=== PATIENT | female | born 1960 | race Caucasian/White ===

== ENCOUNTER 2023-01-20 05:52 | Observation (INO) ==
--- NOTE | 2022-12-22 12:36 | PAT Medication Instructions ---
Medication Instructions Date of Service December 22, 2022 Home Medications albuterol sulfate 90 mcg/actuation aerosol inhaler 1 inh inhalation QID PRN sob amlodipine 5 mg tablet 5 mg PO QAM aspirin 325 mg tablet 325 mg PO QAM bupropion HCl 300 mg 24 hr tablet, extended release 300 mg PO QAM docusate sodium 50 mg capsule (Stool Softener) 100 mg PO HS fluticasone fur. 200 mcg-umeclid 62.5 mcg-vilant 25 mcg inhalat.powder (Trelegy Ellipta) 1 inh inhalation QAM gabapentin 400 mg capsule 800 mg PO BID glimepiride 2 mg tablet 2 mg PO QDL hydralazine 50 mg tablet 100 mg PO BID hydrocodone 7.5 mg-acetaminophen 325 mg tablet 1 tab PO Q6H PRN Pain ipratropium 0.5 mg-albuterol 3 mg (2.5 mg base)/3 mL nebulization soln 3 ml inhalation QID PRN sob losartan 100 mg tablet 100 mg PO QAM metformin 500 mg tablet 1,000 mg PO BID pantoprazole 40 mg tablet,delayed release 40 mg PO QAM ASK your prescriber and surgeon aspirin 325 mg tablet 325 mg PO QAM DO NOT take the morning of surgery glimepiride 2 mg tablet 2 mg PO QDL losartan 100 mg tablet 100 mg PO QAM metformin 500 mg tablet 1,000 mg PO BID Take morning of surgery With a small sip of water, OTHERWISE NOTHING TO EAT OR DRINK AFTER MIDNIGHT: albuterol sulfate 90 mcg/actuation aerosol inhaler 1 inh inhalation QID PRN sob (use if needed; please bring rescue inhaler with you to hospital day of surgery if possible) amlodipine 5 mg tablet 5 mg PO QAM bupropion HCl 300 mg 24 hr tablet, extended release 300 mg PO QAM fluticasone fur. 200 mcg-umeclid 62.5 mcg-vilant 25 mcg inhalat.powder (Trelegy Ellipta) 1 inh inhalation QAM gabapentin 400 mg capsule 800 mg PO BID hydralazine 50 mg tablet 100 mg PO BID hydrocodone 7.5 mg-acetaminophen 325 mg tablet 1 tab PO Q6H PRN Pain (if needed) ipratropium 0.5 mg-albuterol 3 mg (2.5 mg base)/3 mL nebulization soln 3 ml inhalation QID PRN sob (if needed) pantoprazole 40 mg tablet,delayed release 40 mg PO QAM Take evening before surgery albuterol sulfate 90 mcg/actuation aerosol inhaler 1 inh inhalation QID PRN sob (if needed) docusate sodium 50 mg capsule (Stool Softener) 100 mg PO HS gabapentin 400 mg capsule 800 mg PO BID hydralazine 50 mg tablet 100 mg PO BID hydrocodone 7.5 mg-acetaminophen 325 mg tablet 1 tab PO Q6H PRN Pain (if needed) ipratropium 0.5 mg-albuterol 3 mg (2.5 mg base)/3 mL nebulization soln 3 ml inhalation QID PRN sob (if needed) metformin 500 mg tablet 1,000 mg PO BID Other Notes If you have any questions please call us at [phone] or [phone] or [phone] or [phone]
--- NOTE | 2022-12-29 14:08 | Anesthesiology Consultation ---
Date of Service December 29, 2022 Assessment & Plan (1) Encounter for pre-operative examination: - Check BSG AM DOS - Infectious disease screening: Per assessment on 12/29/22: No known infectious disease contacts or current infectious disease symptoms. No noted Covid positive test result in past 90 days. - Neurosurgery visit (10/28/22): "Continue ASA 325mg daily.. For better BP control, continue Hydralazine.. Losartan.. and stop the Carvedilol and start Amlodipine.. Check BP daily for one week and call in with report. If no improvement and if still no improvement.. will refer to cardiology if ok with PCP.. 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 RTC in 1 year or sooner if issues arise" > BP 121/64 at PAT visit 12/29/22. - Preop EKG: Performed 12/29/22, notes ST/TWA, consider lateral ischemia. Preop cardiology evaluation needed- patient aware. [place] preop [place] [place] Chart Review Chart Review: Patient seen in Pre Admission Testing Teaching & Discussion Pre-Anesthesia Teaching/Discussion Notes: Instructed NPO after midnight before surgery,except medications with 15 cc of water. Medication instructions provided according to the [facility] guidelines. History Surgery Operation Date: 01/20/23 07:15 Proposed Procedures p L2-L3 Decompression - Johann Salas MD Height/Weight Height: 5 ft 1 in Weight: 87.9 kg Allergies Allergy/AdvReac Type Severity Reaction Status Date / Time No Known Allergies Allergy Verified 12/17/22 12:43 Medications Home Medications Medication Instructions Recorded Confirmed Last Taken albuterol sulfate 90 mcg/actuation 1 inh inhalation QID PRN sob 12/17/22 12/17/22 Unknown aerosol inhaler amlodipine 5 mg tablet 5 mg PO QAM 12/17/22 12/17/22 Unknown aspirin 325 mg tablet 325 mg PO QAM 12/17/22 12/17/22 Unknown bupropion HCl 300 mg 24 hr tablet, 300 mg PO QAM 12/17/22 12/17/22 Unknown extended release docusate sodium 50 mg capsule 100 mg PO HS 12/17/22 12/17/22 Unknown (Stool Softener) fluticasone fur. 200 mcg-umeclid 1 inh inhalation QAM 12/17/22 12/17/22 Unknown 62.5 mcg-vilant 25 mcg inhalat.powder (Trelegy Ellipta) gabapentin 400 mg capsule 800 mg PO BID 12/17/22 12/17/22 Unknown glimepiride 2 mg tablet 2 mg PO QDL 12/17/22 12/17/22 Unknown hydralazine 50 mg tablet 100 mg PO BID 12/17/22 12/17/22 Unknown hydrocodone 7.5 mg-acetaminophen 1 tab PO Q6H PRN Pain 12/17/22 12/17/22 Unknown 325 mg tablet ipratropium 0.5 mg-albuterol 3 mg 3 ml inhalation QID PRN sob 12/17/22 12/17/22 Unknown (2.5 mg base)/3 mL nebulization soln losartan 100 mg tablet 100 mg PO QAM 12/17/22 12/17/22 Unknown metformin 500 mg tablet 1,000 mg PO BID 12/17/22 12/17/22 Unknown pantoprazole 40 mg tablet,delayed 40 mg PO QAM 12/17/22 12/17/22 Unknown release Past Medical History Medical History (Updated 12/30/22 @ 20:44 by Renetta Hussein) Carotid artery disease LICA angioplasty + stent (01/2020) DM type 2 (diabetes mellitus, type 2) Osteoarthritis Spinal stenosis Depression History of CVA (cerebrovascular accident) 01/2020 > LICA angioplasty + stent (01/2020) No residual issues HLD (hyperlipidemia) HTN (hypertension) Sleep apnea No device (reports "could not afford") COPD (chronic obstructive pulmonary disease) Asthma Exercise / Class Metabolic Activity III < 4 Walking/Shop/Light housework (one FS (no CP, + SOB)) Past Family History Family History Other No family history of adverse response to anesthesia Past Surgical History Surgical History (Updated 12/30/22 @ 20:44 by Renetta Hussein) History of surgery LICA angioplasty + stent (01/2020) History of carpal tunnel surgery of left wrist History of back surgery x2 History of total abdominal hysterectomy and bilateral salpingo-oophorectomy History of colonoscopy Past Anesthesia History No Hx of Anesthesia Complications and No Family Hx of Anesthesia Complications History of PONV No Hx of PONV and No Hx of Motion Sickness Social History Smoking Status: Current every day smoker Smoking cigarettes per day: 1 PPD (trying to quit) Do You Dip or Chew Tobacco: No Hx Alcohol Use: No Hx Substance Use: No substance use type: does not use Review of Systems Patient denies chest pain, shortness of breath, fever, chills, cough, wheezing, palpitations. Physical Exam Vital Signs VITALS BP 121/64 P 98 TEMP 98.6 SP02 94%RA RESP 18 PHYSICAL Mildly decreased cervical extension range of motion. Full TMJ range of motion. TMD 3 finger breaths Mallampati Score 3 Dentition: upper/lower full dentures Lungs: clear throughout to auscultation Cardiac: regular rate and rhythm, no murmurs noted Spine: normal Carotid arteries: negative bruit Extremities: no LE edema Lab Results Anesthesia Preop Results Results Anesthesia Widget: WBC 11.05 K/ul (4.8-10.8) H 12/29/22 Hgb 13.8 g/dl (12.0-16.0) 12/29/22 Hct 43.7 % (37.0-47.0) 12/29/22 Plt 358 K/uL (130-400) 12/29/22 Na 141 mmol/L (136-145) 12/29/22 K 3.7 mmol/L (3.5-5.1) 12/29/22 Cl 104 mmol/L (98-107) 12/29/22 CO2 30 mmol/L (21-32) 12/29/22 BUN 15 mg/dl (6-23) 12/29/22 Creat 0.70 mg/dl (0.6-1.2) 12/29/22 Glucose Level 128 mg/dl (70-99(Fasting)) H 12/29/22 PT 10.0 Seconds (9.0-12.0) 12/29/22 PTT 28.5 Seconds (21.0-31.0) 12/29/22 INR 0.9 (0.9-1.1) 12/29/22 HA1c 6.5 % (4.5-5.6) H 12/29/22 Blood Type O Positive 12/29/22 Antibody Screen NEGATIVE 12/29/22 Testing Electrocardiogram Date: 12/29/[address]/TWA, consider lateral ischemia. Prolonged QT. Chest X-Ray Date: 12/29/22 Findings: + NAD Other Testing Carotid doppler Date: 10/28/22 <50% VALERIE stenosis. LICA and ICA stent are widely patent. R/L vertebral artery antegrade.
[~2023-01-20 05:52] MED LIST: LACTATED RINGER'S 1,000 ML IV SCH; ceFAZolin 2,000 MG/15 ML IV PUSH IV ONE
[2023-01-20] MEDS ORDERED: ATROPINE SULFATE 0.1 MG/ML 10ML SYR IV PRN (06:51)
[2023-01-20] MEDS ORDERED: ePHEDrine sulfate 50 MG/ML AMP IV PRN (06:51)
[2023-01-20] MEDS ORDERED: fentaNYL citrate PF 100 MCG/2 ML VIAL IV PRN (06:51)
[2023-01-20] MEDS ORDERED: ONDANSETRON INJ 2 MG/ML 2 ML VIAL IV PRN ×2 (06:51→11:47)
[2023-01-20] MEDS ORDERED: ALBUT/IPRATROP 3MG/0.5MG NEB 3 ML VIAL NEB STA ×2 (06:57→13:39)
[2023-01-20] MEDS ORDERED: fentaNYL citrate PF 100 MCG/2 ML VIAL ONE ×2 (07:03→08:18)
[2023-01-20] MEDS ORDERED: LIDOCAINE 2% 2 ML VIAL/AMP(20MG/ML) INFIL ONE (07:03)
[2023-01-20] MEDS ORDERED: MIDAZOLAM HCL 1 MG/ML 2ML VIAL ONE (07:03)
[2023-01-20] MEDS ORDERED: ROCURONIUM BROMIDE 10 MG/ML 5 ML VIAL IV ONE ×3 (07:03→10:49)
[2023-01-20] MEDS ORDERED: PROPOFOL IV EMULSION 10 MG/ML 20 ML VIAL IV ONE (07:03)
[2023-01-20] MEDS ORDERED: ONDANSETRON INJ 2 MG/ML 2 ML VIAL ONE (07:03)
[2023-01-20] MEDS ORDERED: DEXAMETHASONE SOD INJ 4 MG/ML VIAL ONE (07:03)
--- NOTE | 2023-01-20 07:09 | History & Physical Bridge Note ---
Date of Service January 20, 2023 History & Physical Bridge Note I have examined the patient, reviewed the History & Physical and in the interval since the performance of the History & Physical I have noted the following changes of clinical significance: no changes noted
[2023-01-20] MEDS ORDERED: ALBUTEROL HFA 8 GM INHALER INH ONE (07:10)
[2023-01-20] MEDS ORDERED: BUPIVACAINE 0.5 % 5 MG/1 ML MPF 30ML VIAL ONE (07:11)
[2023-01-20] MEDS ORDERED: THROMBIN 5000 UNITS KIT ONE (07:11)
[2023-01-20] MEDS ORDERED: VANCOMYCIN HCL 1000MG/20ML VIAL ONE (07:11)
[2023-01-20] MEDS ORDERED: GELATIN SPONGE SZ 100 ONE (07:11)
[2023-01-20] MEDS ORDERED: DexMEDEtomidine HCL IV 100 MCG/ML VIAL IV ONE (07:14)
[2023-01-20] MEDS ORDERED: KETAMINE HCL 10MG/ML SYR ONE (07:14)
[2023-01-20] MEDS ORDERED: PHENYLEPHRINE HCL 10 MG/ML VIAL ONE (09:07)
[2023-01-20] MEDS ORDERED: FLOSEAL HEMOSTATIC MATRIX 10ML TOP ONE (09:38)
[2023-01-20] MEDS ORDERED: HYDROmorphone INJ 2 MG/ML SYR/VIAL ONE (11:05)
[2023-01-20] MEDS ORDERED: KETOROLAC 30 MG/ML VIAL ONE (11:11)
[2023-01-20] MEDS ORDERED: ceFAZolin 330 MG/ML 1 GM VIAL ONE (11:13)
[2023-01-20] MEDS ORDERED: NEOSTIGMINE METHYLSULFATE 1 MG/ML 10ML VIAL ONE (11:17)
[2023-01-20] MEDS ORDERED: GLYCOPYRROLATE 0.2 MG/ML VIAL ONE (11:17)
[2023-01-20] MEDS ORDERED: SUGAMMADEX SODIUM 200 MG/2 ML VIAL IV ONE (11:44)
--- NOTE | 2023-01-20 11:45 | Fluoroscopy Report ---
INTRAOPERATIVE RADIOGRAPHS CLINICAL HISTORY: Lumbar spinal fusion. Fluoro time: 22 seconds Ka,r: 16.58 mGy FINDINGS: 3 spot fluoroscopic views of the lumbar spine are presented. There has been discectomy at L 3-L4 and L4-L5 with laminectomy and posterior fusion at L3-S1. Interpedicular screws are present at a ll levels. The orthopedic hardware appears intact. IMPRESSION: Intraoperative images from lumbar spinal fusion surgery as above. Electronically signed by: Daniel Campbell M.D. 01/20/2023 11:43 AM
[2023-01-20] MEDS ORDERED: LORazepam 0.5 MG in SYRINGE 0.25 ML IV PRN (11:47)
[2023-01-20] MEDS ORDERED: MAGNESIUM HYDROXIDE SUSP 30 ML UDC PO PRN (11:47)
[2023-01-20] MEDS ORDERED: METOCLOPRAMIDE HCL INJ 5 MG/ML 2 ML VIAL IV PRN (11:47)
[2023-01-20] MEDS ORDERED: ACETAMINOPHEN 1,000 MG/100 ML VIAL IV PRN (11:47)
[2023-01-20] MEDS ORDERED: NALOXONE HCL 0.4 MG/1 ML VIAL/CARP IV PRN (11:47)
[2023-01-20] MEDS ORDERED: DO NOT ADMINISTER PNEUMOCOCCAL VACCINE PRN (11:47)
[2023-01-20] MEDS ORDERED: diphenhydrAMINE Capsule 25 MG CAP PO PRN (11:47)
[2023-01-20] MEDS ORDERED: SOD PHOSPHATE/SOD BIPHOSPHATE ENEMA 132 ML BTL PR PRN (11:47)
[2023-01-20] MEDS ORDERED: ACETAMINOPHEN 500 MG TAB PO PRN (11:47)
[2023-01-20] MEDS ORDERED: bisacodyL 10 MG SUPP PR PRN (11:47)
[2023-01-20] MEDS ORDERED: ALUMINUM/MAGNESIUM SUSP 30 ML UDC PO PRN (11:47)
[2023-01-20] MEDS ORDERED: HYDROmorphone INJ 0.5 MG/0.5 ML SYR IV PRN (11:47)
[2023-01-20] MEDS ORDERED: oxyCODONE/ACETAMINOPHEN 5mg/325mg TAB PO PRN (11:47)
[2023-01-20] MEDS ORDERED: hydrOXYzine HCl 25 MG TAB PO PRN (11:47)
[2023-01-20] MEDS ORDERED: LORazepam 0.5 MG TAB PO PRN (11:47)
[2023-01-20] MEDS ORDERED: FAMOTIDINE 20 MG TAB PO PRN (11:47)
[2023-01-20] MEDS ORDERED: ONDANSETRON 4 MG OD TAB PO PRN (11:47)
[2023-01-20] MEDS ORDERED: DO NOT ADMINISTER FLU VACCINE PRN (11:47)
[2023-01-20] MEDS ORDERED: PROMETHAZINE HCL 12.5 MG in SODIUM CHLORIDE 0.9% 50 ML IV PRN (11:47)
--- NOTE | 2023-01-20 11:47 | Post Operative Brief Note ---
PG Immediate Post Op with CF Date of Surgery January 20, 2023 Pre & Post Diagnosis Operation Date: 01/20/23 07:15 Pre-Op Diagnosis: Lumbar Stenosis Without Neurogenic Claudication Post-Op Diagnosis: Lumbar Stenosis Without Neurogenic Claudication I identified the patient and participated in the time-out.: Yes Procedure Operation Date: 01/20/23 07:15 Actual Procedures p L2-L3 Decompression(Not Applicable) - Johann Salas MD Surgeon Johann Salas MD Engineering Research Manager none Estimated Blood Loss 50 Findings Consistent with Post-Op Diagnosis Specimens Specimen Description: None per surgeon
[2023-01-20] MEDS ORDERED: ALBUT/IPRATROP 3MG/0.5MG NEB 3 ML VIAL ONE (13:38)
--- NOTE | 2023-01-20 14:28 | Hospitalist Consultation ---
Date of Consultation January 20, 2023 Assessment & Plan (1) Postoperative hypoxia: I suspect she will just take a long time to recover from anesthesia - multifactorial due to COPD, continued smoking, untreated ELI, hypoxia on exertion at baseline She has no respiratory distress, wheezing or concern for etiology prior to her operation Given no specific acute pathology other than post operative hypoxia in a patient with chronic reasons for hypoxia she appears stable for med/surg If she is getting more confused she should get an ABG to assess for CO2 retention however will defer currently as she is wide awake with no respiratory distress O2 aim should be 88-92%; higher O2 sats risks CO2 retention Will remain on continuous pulse ox Continue incentive spirometer q1h Duonebs qid as some chest tightness but no wheezing She has untreated obstructive sleep apnea and should wear CPAP when napping or sleeping (2) Lumbar stenosis without neurogenic claudication: s/p Lumbar decompression Pain/VTE/bowel management per primary orthopedic team (3) DM type 2 (diabetes mellitus, type 2): Hemoglobin A1C 6.5 in December on pre-op testing, no need to repeat Will consult pharmacy for glycemic control in setting of steroid and recent surgery use Hold home diabetes regimen - but given controlled A1C no changes recommended on discharge (4) HTN (hypertension): Hold hydralazine until serial BP known Hold amlodipine and losartan if sBP < 120 (updated orders) (5) Sleep apnea: CPAP HS and while sleeping (6) COPD (chronic obstructive pulmonary disease): No acute exacerbation suspected Continue routine inhalers or hospital formulary equivalent (7) Dyslipidemia: Continue atorvastatin Plan Thank you for the consult we will continue to medically manage while admitted. History of Present Illness Reason for Consultation: medical management Attending Physician: Johann Salas MD History of Present Illness Anaya Cervantes is a 62 year old female POD#0 L2-3 lumbar spinal decompression performed by Dr Salas earlier today. Estimated blood loss 50ml. No complications listed. Medicine contacted and asked to see patient in PACU due to hypoxia with patient requiring 8LPM O2 via oxymask. When seen in the PACU she had already been given a duoneb. She reports no respiratory distress, chest pain or shortness of breath. She denies any pre surgery illness such as fever, chills, sinus pain, cough, nasal congestion. She reports a significant history of CPAP but does not wear a machine at home as she cannot afford it. Previously been told she needs oxygen for her COPD but also cannot afford it. She does take her inhalers and took her usual maintenance inhaler this morning. Allergies Allergy/AdvReac Type Severity Reaction Status Date / Time No Known Allergies Allergy Verified 01/20/23 06:06 Home Medications Medication Instructions Recorded Confirmed Type albuterol sulfate 90 mcg/actuation 1 inh inhalation QID PRN sob 12/17/22 01/20/23 History aerosol inhaler amlodipine 5 mg tablet 5 mg PO QAM 12/17/22 01/20/23 History aspirin 325 mg tablet 325 mg PO QAM 12/17/22 01/20/23 History bupropion HCl 300 mg 24 hr tablet, 300 mg PO QAM 12/17/22 01/20/23 History extended release docusate sodium 50 mg capsule 100 mg PO HS 12/17/22 01/20/23 History (Stool Softener) fluticasone fur. 200 mcg-umeclid 1 inh inhalation QAM 12/17/22 01/20/23 History 62.5 mcg-vilant 25 mcg inhalat.powder (Trelegy Ellipta) gabapentin 400 mg capsule 800 mg PO BID 12/17/22 01/20/23 History glimepiride 2 mg tablet 2 mg PO QDL 12/17/22 01/20/23 History hydralazine 50 mg tablet 100 mg PO BID 12/17/22 01/20/23 History hydrocodone 7.5 mg-acetaminophen 1 tab PO Q6H PRN Pain 12/17/22 01/20/23 History 325 mg tablet ipratropium 0.5 mg-albuterol 3 mg 3 ml inhalation QID PRN sob 12/17/22 01/20/23 History (2.5 mg base)/3 mL nebulization soln losartan 100 mg tablet 100 mg PO QAM 12/17/22 01/20/23 History metformin 500 mg tablet 1,000 mg PO BID 12/17/22 01/20/23 History pantoprazole 40 mg tablet,delayed 40 mg PO QAM 12/17/22 01/20/23 History release atorvastatin 80 mg tablet 80 mg PO DAILY 01/16/23 01/20/23 History venlafaxine 75 mg tablet 75 mg PO TID 01/16/23 01/20/23 History Patient History Medical History (Updated 01/21/23 @ 07:08 by Brad Balbuena MD) Carotid artery disease LICA angioplasty + stent (01/2020) DM type 2 (diabetes mellitus, type 2) Osteoarthritis Spinal stenosis Depression History of CVA (cerebrovascular accident) 01/2020 > LICA angioplasty + stent (01/2020) No residual issues HLD (hyperlipidemia) HTN (hypertension) Sleep apnea No device (reports "could not afford") COPD (chronic obstructive pulmonary disease) Asthma Surgical History History of surgery LICA angioplasty + stent (01/2020) History of carpal tunnel surgery of left wrist History of back surgery x2 History of total abdominal hysterectomy and bilateral salpingo-oophorectomy History of colonoscopy Family History Other No family history of adverse response to anesthesia Social History Smoking Status: Current every day smoker Tobacco Type: Cigarettes Cigarettes Per Day: 1 PPD (trying to quit); Second Hand Exposure: No; Do You Dip or Chew Tobacco: No; Tobacco Cessation Education Requested by Patient: No Hx Alcohol Use: No Hx Substance Use: No Preferred Language: Afghan Communication Ability: Effective 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 Beliefs That Will Affect Care: None Current Living Situation: Spouse Feels Safe at Home: Yes Safety Concerns: Feels Safe At This Time Assistive Devices: Cane, Denture - Upper, Denture - Lower and Walker Review of Systems Review of Systems: All systems reviewed & are unremarkable except as noted in HPI & below Physical Exam Constitutional: WD/WN, vitals as above Eyes: + anicteric sclerae; normal pupil size ENMT: external ear and nose normal, oropharynx normal Respiratory: normal respiratory effort; no respiratory distress Auscultation: + crackles (bibasal); breath sounds present, no diminished lung sounds, no rales, no rhonchi and no wheezes Cardiovascular: RRR, no murmur, no edema Gastrointestinal (Abdomen): normal bowel sounds, soft, nontender, no hepatosplenomegaly Skin: no rashes, warm and dry Neurologic: moves all extremities and awake; not confused Psychiatric: A+Ox3, euthymic affect Results & Data Results & Data Vital Signs (Past 12 Hours) Vital Signs Temp Pulse Pulse Resp BP Pulse Ox O2 Del Method 01/20/23 14:15 101 H 19 132/63 91 Oxymask 01/20/23 14:05 36.8 C 98 H 15 122/58 L 92 Oxymask 01/20/23 13:55 94 H 13 113/53 L 87 L Oxymask 01/20/23 13:45 94 H 13 102/58 L 94 Nebulizer 01/20/23 13:35 98 H 13 125/72 86 L Oxymask 01/20/23 13:25 104 H 12 147/59 H 91 Oxymask 01/20/23 13:15 106 H 11 L 118/65 90 Oxymask 01/20/23 13:05 106 H 12 109/55 L 90 Oxymask 01/20/23 12:55 105 H 14 134/60 90 Oxymask 01/20/23 12:45 106 H 14 148/62 H 92 Oxymask 01/20/23 12:35 104 H 16 136/74 94 Oxymask 01/20/23 12:25 111 H 12 166/70 H 91 Oxymask 01/20/23 12:15 115 H 18 166/70 H 89 L Oxymask 01/20/23 12:09 36.3 C L 114 H 12 162/63 H 90 Oxymask 01/20/23 07:02 93 H 16 90 Room Air 01/20/23 06:29 36.7 C 101 H 22 148/68 H 92 Room Air 01/20/23 06:11 Room Air O2 Flow Rate 01/20/23 14:15 8 01/20/23 14:05 8 01/20/23 13:55 4 01/20/23 13:45 7 01/20/23 13:35 6 01/20/23 13:25 6 01/20/23 13:15 6 01/20/23 13:05 6 01/20/23 12:55 6 01/20/23 12:45 10 01/20/23 12:35 10 01/20/23 12:25 15 01/20/23 12:15 15 01/20/23 12:09 15 01/20/23 07:02 01/20/23 06:29 12/05/23 06:11 Diagnostic Findings XR chest 1V portable CLINICAL HISTORY: hypoxia TECHNIQUE: Single frontal radiograph of the chest was obtained. Comparison: Comparison is made to chest radiograph 12/29/2022 FINDINGS: No lines and tubes are seen. Cardiomegaly is noted. The aortic arch is calcified. Atelectasis is noted. No evidence of pleural effusion or pneumothorax. IMPRESSION: No acute chest disease. Cardiomegaly is noted. PG Care Time/CCT Total # of Minutes Spent Total Time Spent with Patient: Total time spent is greater than 50% in coordination of care (as documented) at patient's floor/unit and/or counseling patient: Coding Level of Care Code 50035 IN/OBS CONSULT LVL 4,60M Diagnoses Postoperative hypoxia R09.02; Z98.890 Lumbar stenosis without neurogenic claudication M48.061 Type 2 diabetes mellitus without complication, without long-term current use of insulin E11.9 Diabetes mellitus complication status: without complication Diabetes mellitus jail insulin use: without jail use Primary hypertension I10 Hypertension type: primary hypertension Sleep apnea G47.30 COPD (chronic obstructive pulmonary disease) J44.9 Dyslipidemia E78.5 (3) DM type 2 (diabetes mellitus, type 2) Diabetes mellitus complication status: without complication Diabetes mellitus buttermaker insulin use: without buttermaker use Qualified Code(s): E11.9 - Type 2 diabetes mellitus without complications (4) HTN (hypertension) Hypertension type: primary hypertension Qualified Code(s): I10 - Essential (primary) hypertension
[2023-01-20] MEDS ORDERED: PHARMACY GLYCEMIC MGMT CONSULT PRN (14:34)
--- NOTE | 2023-01-20 14:41 | XRay Report ---
XR chest 1V portable CLINICAL HISTORY: hypoxia TECHNIQUE: Single frontal radiograph of the chest was obtained. Comparison: Comparison is made to chest radiograph 12/29/2022 FINDINGS: No lines and tubes are seen. Cardiomegaly is noted. The aortic arch is calcified. Atelectasis is note d. No evidence of pleural effusion or pneumothorax. IMPRESSION: No acute chest disease. Cardiomegaly is noted. ACT 112: Negative or not required by law. Electronically signed by: Rayray Dominguez M.D. 01/20/2023 2:41 PM
--- NOTE | 2023-01-20 14:48 | Anesthesiology Progress Note ---
Date of Service January 20, 2023 Anesthesia Post Procedure Vital Signs Vital Signs: Temp Pulse Pulse Resp BP Pulse Ox O2 Del Method 01/20/23 14:35 96 H 17 111/66 90 Oxymask 01/20/23 14:25 97 H 12 112/67 91 Oxymask 01/20/23 14:15 101 H 19 132/63 91 Oxymask 01/20/23 14:05 98.2 F 98 H 15 122/58 L 92 Oxymask 01/20/23 13:55 94 H 13 113/53 L 87 L Oxymask 01/20/23 13:45 94 H 13 102/58 L 94 Nebulizer 01/20/23 13:35 98 H 13 125/72 86 L Oxymask 01/20/23 13:25 104 H 12 147/59 H 91 Oxymask 01/20/23 13:15 106 H 11 L 118/65 90 Oxymask 01/20/23 13:05 106 H 12 109/55 L 90 Oxymask 01/20/23 12:55 105 H 14 134/60 90 Oxymask 01/20/23 12:45 106 H 14 148/62 H 92 Oxymask 01/20/23 12:35 104 H 16 136/74 94 Oxymask 01/20/23 12:25 111 H 12 166/70 H 91 Oxymask 01/20/23 12:15 115 H 18 166/70 H 89 L Oxymask 01/20/23 12:09 97.3 F L 114 H 12 162/63 H 90 Oxymask 01/20/23 07:02 93 H 16 90 Room Air 01/20/23 06:29 98.1 F 101 H 22 148/68 H 92 Room Air 01/20/23 06:11 Room Air O2 Flow Rate 01/20/23 14:35 6 01/20/23 14:25 6 01/20/23 14:15 8 01/20/23 14:05 8 01/20/23 13:55 4 01/20/23 13:45 7 01/20/23 13:35 6 01/20/23 13:25 6 01/20/23 13:15 6 01/20/23 13:05 6 01/20/23 12:55 6 01/20/23 12:45 10 01/20/23 12:35 10 01/20/23 12:25 15 01/20/23 12:15 15 01/20/23 12:09 15 01/20/23 07:02 01/20/23 06:29 01/20/23 06:11 Transfer of Care Handoff Completed per policy Notes Mental Status: alert / awake / arousable and participated in evaluation Patient Amnestic to Procedure: Yes Nausea / Vomiting: adequately controlled Pain: adequately controlled Airway Patency, RR, SpO2: see Notes below BP & HR: stable & adequate Hydration State: stable & adequate Anesthetic Complications: no major complications apparent and Pt Satisfied with anesthetic care Notes: patient seen after duoneb with diminished breath sounds, improved wheezing compared to preop, satting high 80's on 4-6L oxymask, hospitalist consulted, will require continuous pulse ox monitoring overnight, OK to discharge to floor
[2023-01-20] MEDS: LACTATED RINGER'S 1,000 ML IV SCH (15:30)
[2023-01-20] MEDS ORDERED: ALBUTEROL HFA 8 GM INHALER INH PRN (15:31)
[2023-01-20] MEDS ORDERED: ALBUT/IPRATROP 3MG/0.5MG NEB 3 ML VIAL INH PRN (15:31)
[2023-01-20] MEDS: ALBUT/IPRATROP 3MG/0.5MG NEB 3 ML VIAL NEB SCH ×2 (15:52→19:58)
--- NOTE | 2023-01-20 16:13 | Pharmacy Report ---
Pharmacy Glycemic Short Note 2 - Date of Service January 20, 2023 - Glycemic Short BSG Results (Last 24 hours): 01/20/23 01/20/23 06:09 12:18 POC Glucose 167 H 186 H OUTPATIENT ANTIDIABETIC REGIMEN: * Metformin * Glimepiride * HbA1c 6.5% on 12/29/22 ASSESSMENT: * 62 yo F w T2DM on two oral agents with good control admitted for lumbar stenosis and POD 0 * Dexamethasone overriden in OR. Will utilize betweeen moderate and severe stress Novolog. One overnight check since post-op BSG > 180. * Will initiate one-time dose of Lantus. May need a 2nd tomorrow AM as well. PLAN FOR INPATIENT GLYCEMIC CONTROL: * Hold outpatient oral diabetes medications * Basal insulin * Lantus 20 units SQ x1 * Bolus insulin * NovoLog per scale ACHS or Q6hrs while NPO * Goal Range: Low 110 mg/dL - High 140 mg/dL * Correction Factor: 25 mg/dL/unit * Nutritional / Prandial insulin per carb ratio of 1 unit per 8 grams CHO consumed
[2023-01-20] MEDS ORDERED: LANTUS PER UNIT CHARGE SC ONE (16:15)
[2023-01-20] MEDS: VENLAFAXINE HCL 50 MG TAB PO SCH ×2 (16:37→22:02)
[2023-01-20] MEDS: INSULIN ASPART PER UNIT CHARGE SC SCH ×2 (17:01→20:47)
[2023-01-20] MEDS: ceFAZolin 2000MG 2,000 MG/15 ML SYR IV SCH (17:02)
[2023-01-20 17:15] LABS: Influenza A virus by PCR Negative (Neg); Influenza B virus by PCR Negative (Neg); RSV by PCR Negative (Neg); SARS CoV2 RNA(COVID-19) Ceph NEGATIVE (Negative)
[2023-01-20] MEDS ORDERED: DOCUSATE SODIUM 100 MG CAP PO SCH (21:00)
[2023-01-20] MEDS ORDERED: hydrALAZINE TAB 50 MG TAB PO SCH (21:00)
[2023-01-20] MEDS ORDERED: DOCUSATE SODIUM/SENNA 50/8.6MG TAB PO SCH (21:00)
[2023-01-20] MEDS ORDERED: metFORMIN HCL 500 MG TAB PO SCH (21:00)
[2023-01-20] MEDS: GABAPENTIN 400 MG CAP PO SCH (22:01)
[2023-01-21] MEDS ORDERED: INSULIN ASPART PER UNIT CHARGE SC ONE (02:00)
[2023-01-21] MEDS: ceFAZolin 2000MG 2,000 MG/15 ML SYR IV SCH (03:01)
[2023-01-21] MEDS: LACTATED RINGER'S 1,000 ML IV SCH (03:02)
[2023-01-21] MEDS ORDERED: POLYETHYLENE (MIRALAX) 17 GM PACK PO SCH (06:00)
[2023-01-21] MEDS: ALBUT/IPRATROP 3MG/0.5MG NEB 3 ML VIAL NEB SCH (07:34)
[2023-01-21 07:43] LABS: Basophils # (auto) 0.06 K/uL (0.00-0.20); Basophils % (auto) 0.4 %; Eosinophils # (auto) 0.06 K/uL (0.00-0.50); Eosinophils % (auto) 0.4 %; Hematocrit (blood only) 39.8 % (37.0-47.0); Hemoglobin 12.3 g/dl (12.0-16.0); Immature Granulocytes # (auto) 0.09 K/uL (0.01-0.20); Immature Granulocytes % (auto) 0.6 %; Lymphocytes # (auto) 1.55 K/uL (1.20-3.40); Lymphocytes % (auto) 10.4 %; Mean Corpuscular Hemoglobin 27.8 pg (25.0-34.0); Mean Corpuscular Hgb Conc 30.9 g/dL (32.0-36.0); Mean Platelet Volume 9.1 fL (9.4-12.4); Monocytes # (auto) 1.31 K/uL (0.11-0.59); Monocytes % (auto) 8.8 %; Neutrophils # (auto) 11.88 K/uL (1.40-6.50); Neutrophils % (auto) 79.4 %; Platelet Count 289 K/uL (130-400); RDW Coefficient of Variation 13.8 % (11.5-14.5); RDW Standard Deviation 45.5 fL (36.4-46.3); Red Blood Count 4.42 M/uL (4.20-5.40); White Blood Count 14.95 K/ul (4.8-10.8)
[2023-01-21 07:53] LABS: BUN Creatinine Ratio 24.6 (10-20); Calcium 9.1 mg/dl (8.6-10.3); Creatinine Clr Calc Pharmacy 87.2 ml/min; Est GFR (African American) 109.7 ml/min; Est GFR (Non-African American) 94.6 ml/min; Potassium 3.8 mmol/L (3.5-5.1)
[2023-01-21] MEDS: GABAPENTIN 400 MG CAP PO SCH (08:33)
[2023-01-21] MEDS: VENLAFAXINE HCL 50 MG TAB PO SCH (08:34)
[2023-01-21] MEDS: INSULIN ASPART PER UNIT CHARGE SC SCH (08:38)
[2023-01-21] MEDS ORDERED: FLUTICASONE FUROATE 200MCG 14 PUFFS/INHALER INH SCH (09:00)
[2023-01-21] MEDS ORDERED: amLODIPine BESYLATE 5 MG TAB PO SCH (09:00)
[2023-01-21] MEDS ORDERED: PANTOprazole 40 MG TAB PO SCH (09:00)
[2023-01-21] MEDS ORDERED: buPROPion XL 300 MG TABCR PO SCH (09:00)
[2023-01-21] MEDS ORDERED: ATORVASTATIN 40 MG TAB PO SCH (09:00)
[2023-01-21] MEDS ORDERED: UMECLIDINIUM/VILANTEROL 62.5/25MCG 7 PUFFS/INHALER INH SCH (09:00)
[2023-01-21] MEDS ORDERED: LOSARTAN POTASSIUM 50 MG TAB PO SCH (09:00)
--- NOTE | 2023-01-21 09:39 | Orthopedic Progress Note ---
Date of Service January 21, 2023 Assessment & Plan (1) Lumbar stenosis without neurogenic claudication: Overall she is doing quite well today with good pain control to her back as well as her lower bilateral lower extremities. She has worked well with physical therapy working on ambulation and range of motion. Discharge instructions were given to her by Dr. Salas this morning. She may be discharged once dressing changes were performed. She will follow-up with orthopedics in 2 weeks for postoperative care. Subjective . Anaya was seen today resting comfortably at bedside in no apparent distress. She states that she is doing very well today and her pain is much improved to her lower back as well as into her bilateral legs. She has been up and ambulating to the bathroom. She has also worked with physical therapy and Occupational Therapy and states this went very well. She has no other concerns today. Review of Systems All systems reviewed & are unremarkable except as noted in HPI & below. Physical Exam . On physical examination, her bandages dry, intact, and in place. She has good range of motion and strength to both legs. Improved radicular pain bilaterally. Calfs are soft and nontender to palpation. Negative Homans' sign. +2 DP and PT pulse. Less than 2-second capillary refill. Normal sensation. Neurovascular intact. Results & Data Results & Data Laboratory Results . Diagnostic Findings . PG Care Time/CCT Total # of Minutes Spent Total Time Spent with Patient: Total time spent is greater than 50% in coordination of care (as documented) at patient's floor/unit and/or counseling patient: Coding Level of Care Code 86987 Post Operative Follow-Up Diagnoses Lumbar stenosis without neurogenic claudication M48.061
--- NOTE | 2023-01-21 09:44 | Discharge Summary ---
Date of Service January 21, 2023 Principal Diagnosis Same as "Discharge Diagnosis" noted below under Discharge Instructions. Discharge Exam . On physical examination, her bandages dry, intact, and in place. She has good range of motion and strength to both legs. Improved radicular pain bilaterally. Calfs are soft and nontender to palpation. Negative Homans' sign. +2 DP and PT pulse. Less than 2-second capillary refill. Normal sensation. Neurovascu lar intact. Discharge Data Consultations 01/20/23 11:47 Consult Hospitalist Routine Procedures Performed Operation Date: 01/20/23 07:15 Actual Procedures p L2-L3 Decompression(Not Applicable) - Johann Salas MD Ordered Studies 01/20/23 07:15 FL lumbar spine 2-3V Routine Hospital Course (1) Lumbar stenosis without neurogenic claudication: On January 20, 2023 Anaya arrived at [facility] and underwent a L2- L3 decompression without complications. She had a general anesthetic. Post operatively, she was taken to PACU for recovery and then transferred to the general orthopedic floor in stable condition. On postoperative day #1, her vital signs were stable and her pain was well-controlled. She worked well with physical therapy doing ambulation and range of motion exercises. Discharge instructions were discussed with the patient by Dr. Salas. She was discharged home in stable condition. She is to follow-up in 2 weeks with orthopedics for postoperative care. PG Care Time/CCT Total # of Minutes Spent Total Time Spent with Patient: Total time spent is greater than 50% in coordination of care (as documented) at patient's floor/unit and/or counseling patient: Discharge Plan Discharge Items Patient Disposition: Home - Self-Care Reason For Visit: Lumbar Stenosis Without Neurogenic Claudication Discharge Diagnosis: Same Activity: Per Instructions section Non-emergency contact: Surgeon Call non-emergency contact if: your temperature is above 101.5, your wound has increased redness and your wound has increased drainage Follow-up/Referrals: Rekha Martinez D.O. [Primary Care Provider] - Diet: Regular Addtl Attending Provider Instructions: Please follow Dr. Salas Post Operative Instructions that were given in the office upon scheduling surgery. -Dressings will be changed prior to discharge. -Keep Surgical site dry for the next 3 days. -May shower after 3 days with no soaking of the surgical site -May leave surgical site open to air if dry. -Cover the surgical site with a bandage if draining or getting caught on clothes. -Take it easy for the next 2 weeks. (Ex: No Lifting, running, bending, or twisting, etc.). -You will F/u with Dr. Salas in 2 weeks for postoperative care. -If any questions or concerns in the mean time, Reach out to [facility] at [phone] Pending Studies at Discharge: No Stand-Alone Forms: [facility], Smoking Cessation Medications and DC Order Prescriptions: Continued atorvastatin 80 mg tablet 80 mg PO DAILY venlafaxine 75 mg tablet 75 mg PO TID metformin 500 mg Tablet 1,000 mg PO BID Patient Comments: takes 2 PO in am and 1 PO qpm per pt report aspirin 325 mg Tablet 325 mg PO QAM gabapentin 400 mg Capsule 800 mg PO BID Stool Softener 50 mg Capsule 100 mg PO HS amlodipine 5 mg Tablet 5 mg PO QAM glimepiride 2 mg Tablet 2 mg PO QDL Rx Instructions: administer with breakfast hydrocodone-acetaminophen 7.5-325 mg Tablet 1 tab PO Q6H PRN (Reason: Pain) pantoprazole 40 mg Tablet,Delayed Release (Dr/Ec) 40 mg PO QAM hydralazine 50 mg Tablet 100 mg PO BID albuterol sulfate 90 mcg/actuation Hfa Aerosol Inhaler 1 inh INHALATION QID PRN (Reason: sob) losartan 100 mg Tablet 100 mg PO QAM bupropion HCl 300 mg Tablet Extended Release 24 Hr 300 mg PO QAM Trelegy Ellipta 200-62.5-25 mcg Blister With Device 1 inh INHALATION QAM ipratropium-albuterol 0.5 mg-3 mg(2.5 mg base)/3 mL Solution For Nebulization 3 ml INHALATION QID PRN (Reason: sob) Discharge Orders: Discharge Order (Routine); Ordered 01/21/23 Ordered By: Steve Jones/Other Patient Handouts: High Blood Sugar (Hyperglycemia), Hypoglycemia (Low Blood Sugar), Managing Type 2 Diabetes Admission Data Admit Date/Time: 01/20/23 11:47 Attending Provider: Johann Salas Admit Provider: Johann Salas Primary Care Provider: Rekha Martinez Other Providers: Fabrice Quintanilla; Maria Teresa Hurst; Brad Smith; Carlyle Barahona; Mookie Cheng; Ventura Gay; Aster Leon; Esha Arias; Dorian Weber; Jocelyne Frias; Ceasar Jane; Windy Ross; Gio Louis; Singh Agustin; Maria Teresa Lazaro; Maria Elena Vargas; Yonny Jaquez; Brad Balbuena; Yony Cartwrgiht; Dona Zaldivar; Sylvia Wetzel; Artie Massey; Patricia Campuzano; Jeffery Barahona; Luis A Cavanaugh; Jeffrey Bermudez; Jhoan Self.; Michelle Ayala; Summer Gallagher; Pelon Contreras; Radha Lewis; Carlyle Carpenter; Mookie Ornelas
--- NOTE | 2023-01-23 10:05 | Operative Report ---
PG Post Operative Report Pre & Post Diagnosis Operation Date: 01/20/23 07:15 Pre-Op Diagnosis: Lumbar Stenosis Without Neurogenic Claudication Post-Op Diagnosis: Lumbar Stenosis Without Neurogenic Claudication I identified the patient and participated in the time-out.: Yes Procedure Operation Date: 01/20/23 07:15 Actual Procedures p L2-L3 Decompression(Not Applicable) - Johann aSlas MD Surgeon Johann Salas MD Shank Cementer Hand none Estimated Blood Loss 50 Findings Consistent with Post-Op Diagnosis Specimens None Description of Procedure Procedure: L2-3 bilateral lumbar decompression with hemilaminotomies, medial facetectomies and decompression of L2 and L3 nerve roots. ([id number]) Patient brought the operating room after adequate anesthesia was carefully positioned prone on a Cedrick frame. Preprep was performed, and then I brought in fluoroscopy and marked for the area of the incision which corresponded to the upper end of the prior incision for her prior L3-S1 fusion. This region was marked, prep and drape was performed, and began the procedure with a midline incision carried down through the subcutaneous tissues. This incorporated some scar tissue from the upper end of the incision down to the spinous processes where I then mobilized the tissues to either side away from the lamina of L2 and the area of prior decompression at L3. This process continued down to the facets where I then after confirming her location using fluoroscopy, mobilized the tissues off the inferior laminar edge of L2 exposing the interlaminar region. This took a fair amount of time secondary to the scar tissue, but I was able to then locate the remaining superior laminar edge of L3, along the medial aspect of both facets. I began the procedure with thin thinning the remaining ligamentum flavum, I used a high-speed bur to move along the inferior laminar edge of L2 bilaterally and along the medial facets and along the superior r emaining L3 lamina ridge. I continued to thin the remaining ligamentum flavum and then used a combination of Kerrison punches and pituitaries and curettes to remove the remaining ligamentum flavum. This was carried down to the facets on the medial aspect and then undercutting the facets bilaterally and also along the inferior laminar edge of L2 bilaterally and the same for the L3 level on the superior aspect. The decompression and continued to decompress the exiting nerve roots at L2 and L3. Once I completed this decompression I then mobilized the dural contents midline from the left, and was able to locate disc protrusion in this region. I then incised and remove the disc material performing a thorough removal of the disc protrusion. Some Floseal and bipolar cautery was used to control any bleeding in this region, continue the process until this was completed with adequate decompression. The operative site was irrigated, no issues were noted, Floseal and vancomycin powder was placed followed by then closure using 0 Vicryl sutures 2-0 Vicryl sutures and ginette for the skin. Sterile dressing was applied, the patient was taken to recovery room centric condition. I attest to the content of the Intraoperative Record and any orders documented therein. Any exceptions are noted below.
== END 2023-01-21 10:16 | disposition home or self-care (01) ==
LOC: ASU 05:52 → 3E 05:52